=== PATIENT | female | born 1970 | race Caucasian/White ===

== ENCOUNTER → 2016-06-09 | Outpatient (CLI) | payer BC ==
[~2016-06-09] MED LIST: GADAVIST IV PRN; LEVO100T7 PO
--- NOTE | 2016-06-09 17:19 | DIAGNOSTIC IMAGING REPORT ---
MRI pelvis PELVIS COMBO CLINICAL HISTORY: PELVIC PAIN endometriosis TECHNIQUE: MRI multi axial acquisition COMPARISON STUDY: 04/18/2015. FINDINGS: Improved exam. No current evidence for progressive endometriosis. Very small implants in the perirectal and vaginal cuff region are diminished in size by 50%. The bulk of the residual endometriomas produces described have shown considerable diminished to decrease in size as well. There is no evidence for new interval or progressive process. No significant free fluid within the pelvic cul-de-sac.. IMPRESSION: Improved exam. The endometrium is previously described are diminished in size as well as number. No evidence for new interval or progressive process. Electronically signed by: Jerson Seay M.D. 06/09/2016 5:17 PM Dictated Date/Time: 06/09/2016 5:11 PM
== END | disposition home or self-care (01) ==
LOC: C.MRI 15:47
PROVIDERS: ATTEND Obstetrics & Gynecology
DX: N80.4 Endometriosis of rectovaginal septum and vagina (principal); R10.2 Pelvic and perineal pain